=== PATIENT | male | born 1975 | race Caucasian/White ===

== ENCOUNTER 2016-09-18 16:16 | Emergency (ER) | payer OTHER ==
--- NOTE | 2016-09-18 16:27 | ED PSYCHIATRIC COMPLAINT ---
History of Present Illness General Chief Complaint: ETOH/Drug Related Complaint Stated Complaint: ETOH Source: patient Exam Limitations: no limitations Vital Signs & Intake/Output Vital Signs & Intake/Output Vital Signs Date Time Temp Pulse Resp B/P Pulse O2 O2 Flow FiO2 Ox Delivery Rate 09/18 1836 Room Air Room Air 09/18 1709 100 18 144/104 94 Room Air Allergies Coded Allergies: NO KNOWN ALLERGIES (02/26/16) Triage Note: PT BIBA FROM [facility] ON A PEER FOR +ETOH PT FOUND BY [facility] TO ALMOST HAVE FALLEN, BUT DID NOT FALL. PER PEER, "INTOXICATED. DISORIENTED TO DAY, DATE TIME. DISORIENTED REGARDING WHERE HE LIVES. FELL POSSIBLY HITTING HEAD UNKNOWN LOC." PER EMS, -SI/-HI Triage Nurses Notes Reviewed? yes HPI: This patient is a 41-year-old male who is brought into the emergency department today by ambulance after he was found intoxicated on the side of the road. EMS reported that he was found when he, "almost fell over." The patient is a poor historian at this time as he is agitated and uncooperative. Patient is denying adamantly any alcohol use today or any drug use. Noncompliant with any other questions at this time. The patient is denying any chest pain, abdominal pain, falls, headache, focal pain, difficulty breathing. He is denying any suicidal or homicidal ideation. Refusing any alcohol detox at this time. (NELL MONREAL PA-C) Past History Travel History Traveled to [place] past 21 day No Medical History Any Pertinent Medical History? 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 No (NELL MONREAL PA-C) Review of Systems Review of Systems Constitutional: Reports: no symptoms. EENTM: Reports: no symptoms. Respiratory: Reports: no symptoms. Cardiovascular: Reports: no symptoms. GI: Reports: no symptoms. Musculoskeletal: Reports: no symptoms. Skin: Reports: no symptoms. Neurological/Psychological: Reports: no symptoms. 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 SAD PERSONS Done? patient not suicidal (NELL MONREAL PA-C) Progress Differential Diagnosis: dementia, drug intoxication, drug overdose, drug withdrawal, electrolyte abnormality, encephalitis, drug intoxication, drug overdose, drug withdrawal Plan of Care: 09/18/2016 7:23:37 PM: This patient's mother is currently at the patient's bedside. She feels compelled taking him home at this time. The patient is still refusing any alcohol detox. He is walking with a steady gait, alert and oriented, and capable of making medical decisions at this time. Comments: 09/18/2016 4:30:07 PM: Dr. Dalal at the patient's bedside reveals evaluation. We will try to obtain a breathalyzer test from this patient. Awaiting his mother to arrive. If this patient is still refusing any workup here in the hospital, he will likely go home with a sober ride. The patient is adamantly refusing any drug or alcohol detox. The patient is alert and oriented. Steady gait. (NELL MONREAL PA-C) Departure Departure Disposition: HOME OR SELF CARE Condition: Stable Clinical Impression Primary Impression: Alcohol intoxication Qualifiers: Complication of substance-induced condition: uncomplicated Qualified Code: F10.120 - Alcohol abuse with intoxication, uncomplicated Referrals: PATIENT HAS NO PRIMARY CARE DR (PCP/Family) Additional Instructions: Return for any worsening symptoms or concerns. Departure Forms: Customer Survey General Discharge Information (NELL MONREAL PA-C) PA/PHYSICAL EDUCATION INSTRUCTOR Co-Sign Statement Statement: ED Attending supervision documentation- [x] I saw and evaluated the patient. I have also reviewed all the pertinent lab results and diagnostic results. I agree with the findings and the plan of care as documented in the PA's/PHYSICAL EDUCATION INSTRUCTOR's documentation. [] I have reviewed the ED Record and agree with the PA's/PHYSICAL EDUCATION INSTRUCTOR's documentation. [] Additions or exceptions (if any) to the PAs/PHYSICAL EDUCATION INSTRUCTOR's note and plan are summarized below: [] He was awake alert and oriented 3. He refused evaluation by crisis and had no interest in alcohol detox. No ataxia. (SMOOTH DALAL DO) ED Attending Observation Initial Observation Note: I have seen and personally examined CARLOS STALLINGS on 09/18/16 at 1945. I agree with the current emergency department documentation. The disposition (admission or discharge) is uncertain at this time, he needs a period of observation for the following reason(s): The ED Nurse caring for this patient has been personally informed as to what the patient is being observed for. (SMOOTH DALAL DO)
[2016-09-18 17:09] VITALS: BP 144/104
== END 2016-09-18 19:35 ==
LOC: ERH 16:16
DX: F10.129 Alcohol abuse with intoxication, unspecified (principal)

== ENCOUNTER 2016-12-08 20:31 | Emergency (ER) | payer OTHER ==
[2016-12-08 20:44] VITALS: BP 115/59
--- NOTE | 2016-12-08 20:48 | ED GENERAL ADULT ---
History of Present Illness General Chief Complaint: ETOH/Drug Related Complaint Stated Complaint: BIBA FOR ETOH DEXTOX, +ETOH, -SI/-HI Source: patient, old records, EMS Exam Limitations: intoxication Vital Signs & Intake/Output Vital Signs & Intake/Output Vital Signs Date Time Temp Pulse Resp B/P B/P Pulse O2 O2 Flow FiO2 Mean Ox Delivery Rate 12/09 2043 99.5 67 20 115/59 98 Room Air Allergies Coded Allergies: NO KNOWN ALLERGIES (02/26/16) Triage Note: PT BIBA FOR ETOH DETOX. PT DENIES SI OR HI. Triage Nurses Notes Reviewed? yes HPI: Patient was found by police intoxicated. Patient was born in for evaluation. Patient has no current complaints. Patient states that he does not want detox. Patient denies any suicidal or homicidal ideations. Patient denies any hallucinations. Patient denies coingestions. Past History Travel History Traveled to [place] past 21 day No Medical History Any Pertinent Medical History? 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 No Review of Systems Review of Systems Constitutional: Reports: no symptoms. Respiratory: Reports: no symptoms. Cardiovascular: Reports: no symptoms. GI: Reports: no symptoms. Musculoskeletal: Reports: no symptoms. Neurological/Psychological: Reports: no symptoms. Immunologic/Allergic: Reports: no symptoms. Physical Exam Physical Exam General Appearance: well developed/nourished, alert, awake, intoxicated Head: atraumatic, normal appearance Eyes: Bilateral: PERRL, EOMI, other (SLUGGISH). Neck: normal inspection, supple, full range of motion Respiratory: normal breath sounds, chest non-tender, no respiratory distress, lungs clear Cardiovascular: regular rate/rhythm, normal peripheral pulses Gastrointestinal: normal bowel sounds, soft, non-tender Neurologic/Psych: no motor/sensory deficits, awake, alert, oriented x 3, normal mood/affect Core Measures ACS in differential dx? No CVA/TIA Diagnosis: No Severe Sepsis Present: No Septic Shock Present: No Progress Differential Diagnoses I considered the following diagnoses in my evaluation of the patient: [Alcohol intoxication] Plan of Care: Patient called for a ride Initial ED EKG: none Departure Departure Disposition: HOME OR SELF CARE Condition: Stable Clinical Impression Primary Impression: Alcohol intoxication Referrals: PATIENT HAS NO PRIMARY CARE DR (PCP/Family) Additional Instructions: return for any concerns Departure Forms: Customer Survey General Discharge Information Critical Care Note Critical Care Note Critical Care Time: non-applicable
== END 2016-12-08 21:26 ==
LOC: ERH 20:31
DX: F10.129 Alcohol abuse with intoxication, unspecified (principal)